=== PATIENT | female | born 1980 | race Caucasian/White ===

== ENCOUNTER 2021-11-09 10:09 | Emergency (ER) | payer OTHER ==
[~2021-11-09] VITALS: Ht 162.6 cm; Wt 77.8 kg
[2021-11-09] MEDS ORDERED: SODIUM CHLORIDE 0.9% 1000ML 1,000 ML IV STA (10:47)
[2021-11-09] MEDS ORDERED: ONDANSETRON HCL INJ 2MG/ML 2ML 2 MG/ML VIAL IV STA (10:47)
[2021-11-09] MEDS ORDERED: SODIUM CHLORIDE 0.9% 1000ML 1,000 ML ONE (11:03)
[2021-11-09] MEDS ORDERED: PHENERGAN SUPP25 MG (11:13)
[2021-11-09] MEDS ORDERED: TEMAZEPAM15 MG PO (11:13)
[2021-11-09] MEDS ORDERED: ONDANSETRON ODT4 MG PO (11:13)
[2021-11-09] MEDS ORDERED: AMLODIPINE BESYL5 MG PO (11:13)
[2021-11-09] MEDS ORDERED: PROMETHAZINE HCL (IM) 25 MG/ML VIAL IM ONE (11:59)
[2021-11-09] MEDS ORDERED: SODIUM CHLORIDE 0.9% 50ML 50 ML ONE ×2 (12:00→12:58)
[2021-11-09] MEDS ORDERED: PROMETHAZINE 12.5MG/ NACL 0.9% 12.5 MG/50 ML BAG IV ONE (12:00)
[2021-11-09] MEDS ORDERED: IOPAMIDOL 370 MG/ML 200 ML INFUS..BTL INJ ONE (12:58)
[2021-11-09] MEDS ORDERED: Morphine 2mg Syringe 2 MG/ML SYR IV STA (13:09)
[2021-11-09] MEDS ORDERED: CIPRO500 MG PO (13:13)
[2021-11-09] MEDS ORDERED: METRONIDAZOLE500 MG PO (13:13)
[2021-11-09] MEDS ORDERED: REGLAN5 MG PO (13:13)
[2021-11-09] MEDS ORDERED: Morphine 4mg Syringe 4 MG/ML INJ ONE (13:22)
[2021-11-11] MEDS ORDERED: SINGULAIR10 MG PO (10:00)
[2021-11-11] MEDS ORDERED: LOESTRIN1 EAC1 PO (10:00)
[2021-11-12] MEDS ORDERED: LEVAQUIN PO (15:08)
[2021-11-12] MEDS ORDERED: XYZAL5 MG (15:09)
[2021-11-12] MEDS ORDERED: ONDANSETRON ODT8 MG PO (15:09)
== END 2021-11-09 13:35 | disposition home or self-care (01) ==
LOC: FSED 10:48
DX: R11.2 Nausea with vomiting, unspecified (principal); R19.7 Diarrhea, unspecified; R10.10 Upper abdominal pain, unspecified; Z88.6 Allergy status to analgesic agent; Z91.018 Allergy to other foods; Z86.011 Personal history of benign neoplasm of the brain
CPT/HCPCS: 70470; 74176; 80048; 80076; 81003; 81025; 85025; 96374; 96375; 99284; J2270 ×2; J2405; J2550; J7030; Q9967

== ENCOUNTER → 2021-11-12 | Day surgery (SDC) | payer OTHER ==
[~2021-11-12] MED LIST: AMLODIPINE BESYL5 MG PO; CIPRO500 MG PO; FENTANYL CITRATE/PF 100MCG/2 ML INJ ONE; LEVAQUIN PO; LIDOCAINE HCL 2% LOCAL INJ 5 ML SDV VIAL INJ ONE; LOESTRIN1 EAC1 PO; METOCLOPRAMIDE HCL 10 MG/2ML VIAL ONE; METRONIDAZOLE500 MG PO; MIDAZOLAM HCL 2 MG/2 ML VIAL ONE; ONDANSETRON ODT4 MG PO; ONDANSETRON ODT8 MG PO; PHENERGAN SUPP25 MG; PROPOFOL IV EMULSION 10 MG/ML 20 ML VIAL ONE; REGLAN5 MG PO; SINGULAIR10 MG PO; TEMAZEPAM15 MG PO; XYZAL5 MG
[2021-11-12 17:10] VITALS: BP 121/67
== END | disposition home or self-care (01) ==
LOC: OR 14:10
PROVIDERS: ATTEND Internal Medicine Gastroenterology
DX: K29.50 Unspecified chronic gastritis without bleeding (principal); K31.7 Polyp of stomach and duodenum; K20.90 Esophagitis, unspecified without bleeding; K21.9 Gastro-esophageal reflux disease without esophagitis; K44.9 Diaphragmatic hernia without obstruction or gangrene; K52.9 Noninfective gastroenteritis and colitis, unspecified; I10 Essential (primary) hypertension; Z88.6 Allergy status to analgesic agent; Z01.810 Encounter for preprocedural cardiovascular examination; Z01.812 Encounter for preprocedural laboratory examination; Z20.822 Contact with and (suspected) exposure to COVID-19; Z79.899 Other long term (current) drug therapy; Z68.29 Body mass index [BMI] 29.0-29.9, adult
CPT/HCPCS: 43239; 93005; C9113; J2001; J2250; J2704; J2765; J3010; U0002